=== PATIENT | male | born 1955 | race Caucasian/White ===

== ENCOUNTER → 2017-03-24 | Outpatient (CLI) | payer OTHER, MEDICARE ==
[~2017-03-24] MED LIST: ADVAIR 250-501 EACH INH; ASCORBIC ACID500 MG PO; ASPIRIN EC81 MG PO; BIPAP INH; COZAAR100 MG PO; FISH OIL 1,2001 EAC3 PO; JANUMET 50-5001 EACH PO; LEVOTHROID (S150 MCG PO; LIPITOR80 MG PO; OXYGEN M-15 INH; THERAGRAN-M1 TAB PO; TOPROL XL25 MG PO; VITAMIN E400 UNI2 PO
== END ==
LOC: LNHI 17:07
DX: I25.10 Atherosclerotic heart disease of native coronary artery without angina pectoris (principal); I10 Essential (primary) hypertension; E66.9 Obesity, unspecified; E11.65 Type 2 diabetes mellitus with hyperglycemia